=== PATIENT | male | born 1985 ===

== ENCOUNTER 2018-05-26 10:04 | Emergency (ER) | payer SELFPAY ==
[2018-05-26 10:16] VITALS: BP 133/73; PULSE 78; RESP 18; TEMP 98.5; O2SAT 99
--- NOTE | 2018-05-26 11:18 | C.PDOC ---
History Of Present Illness 32 year old male presents to ED with complaint of small areas of intense rash. Patient has a rash on his chin, below his left eye, and on his right scalp. Patient states that he works in construction and that he may have touched something and rubbed it in those areas. Patient takes medication for his Rheumatoid Arthritis and is currently seeking guidance at his treatment. Patient states that he takes Motrin occasionally. He denies generalized rash and difficulty breathing. Time Seen by Provider: 05/26/18 11:07 Chief Complaint (Nursing): Allergic Reaction History Per: Patient History/Exam Limitations: no limitations Current Symptoms Are (Timing): Still Present Quality Of Symptoms: Itching Past Medical History Reviewed: Historical Data, Nursing Documentation, Vital Signs Vital Signs: Last Vital Signs Temp 98.5 F 05/26/18 10:11 Pulse 78 05/26/18 10:11 Resp 18 05/26/18 10:11 BP 133/73 05/26/18 10:11 Pulse Ox 99 05/26/18 10:11 - Medical History PMH: Arthritis, HTN Surgical History: No Surg Hx Family History: States: Unknown Family Hx - Social History Hx Alcohol Use: No Hx Substance Use: No - Immunization History Hx Tetanus Toxoid Vaccination: No Hx Influenza Vaccination: No Hx Pneumococcal Vaccination: No Review Of Systems Constitutional: Negative for: Fever, Chills, Weakness Respiratory: Negative for: Shortness of Breath, Wheezing Skin: Positive for: Rash (on the chin, below the left eye, and on the right scalp ) Neurological: Negative for: Weakness, Numbness, Dizziness Physical Exam - Physical Exam Appears: Well, Non-toxic, No Acute Distress Skin: Rash (small, intense areas of pruritic rash to the chin, under the left eye, and the right scalp, less than 2 cm in diameter) Head: Atraumatic, Normacephalic Neck: Normal ROM, Supple Chest: Symmetrical, No Deformity Respiratory: No Accessory Muscle Use Extremity: Other (joints normal) Extremity: Bilateral: Atraumatic, Normal Color And Temperature, Normal ROM Neurological/Psych: Oriented x3, Normal Speech, Normal Cognition ED Course And Treatment O2 Sat by Pulse Oximetry: 99 (in RA) Progress Note: Patient given Pepcid PO and Prednisone PO. Re-evaluation. Patient feels better. Discussed plan with patient who expresses understanding. All questions answered and there is agreement with the plan to discharge home with instructions. Patient stable for discharge. Return if symptoms persist or worsen. Medical Decision Making Medical Decision Making: contact dermatitis, not generalized rash prob related to work on Contruction ? poison rambo calamine lotion PRN Disposition Doctor Will See Patient In The: Office Counseled Patient/Family Regarding: Studies Performed, Diagnosis - Disposition Referrals: [facility] [Outside] [employer] [facility] [Outside] [facility] [Outside] Milton Alvarado MD [Staff Provider] - Lev Anna MD [Staff Provider] - Disposition: HOME/ ROUTINE Disposition Time: 11:18 Condition: GOOD Additional Instructions: aqui recebio' Prednisona 40 mg y Pepcid 20 mg por via oral Sigue Calamine lotion encima de las areas affectadas Arthritis Rheumatoideo: Sigue Ibuprofeno/Advil hasta 600 mg cada 6 horas constanza necessario Siempre quique Pepcid 20 mg en la noche para prevenir irritacion' del estomago debido al ibuprofeno Sigue con la Clinica familiar o' con Dr. Alvarado- [facility] para hacer gee Instructions: Contact Dermatitis (DC) Forms: [employer] (Czech) Print Language: COSTA RICAN - Clinical Impression Clinical Impression: Allergic contact dermatitis - Scribe Statement The provider has reviewed the documentation as recorded by the Scribe (Esperanza Galloway) All medical record entries made by the Scribe were at my direction and personally dictated by me. I have reviewed the chart and agree that the record accurately reflects my personal performance of the history, physical exam, medical decision making, and the department course for this patient. I have also personally directed, reviewed, and agree with the discharge instructions and disposition.
== END 2018-05-26 11:26 | disposition home or self-care (01) ==
LOC: C.ER 10:04
DX: L23.9 Allergic contact dermatitis, unspecified cause (principal)